=== PATIENT | male | born 1955 | race Caucasian/White ===

== ENCOUNTER → 2016-09-09 | Outpatient (REF) | payer MEDICARE, MEDICAID ==
[~2016-09-09] MED LIST: ASPI1TAB PO; ATOR1TAB21 PO; BACL10TA2 PO; CALC500T49 PO; CREO12CA PO; IRON65TA PO; LOMO2.5T PO; LORA10TA2 PO; MAGN400T PO; METO1TAB33 PO; OMEP20CA3 PO; PENT1TAB8 PO; ROPI0.5T PO; TEMA15CA2 PO; VENL150C43 PO; VITA500046 PO; VITA500T3 PO; VITA500T88 PO; ZALE10CA PO; [UNRECOGNIZED DRUG - CODE] PO; [UNRECOGNIZED DRUG - CODE] SC
[2016-09-09 19:19] LABS: ALBUMIN 1.9 GM/DL (3.2-5.2); ALBUMIN/GLOBULIN RATIO 0.59 (1.00-1.93); ALKALINE PHOSPHATASE 197 U/L (45-117); ALT/SGPT 70 U/L (12-78); ANION GAP 9 MEQ/L (8-16); AST/SGOT 91 U/L (15-37); BILIRUBIN,TOTAL 1.9 MG/DL (0.2-1.0); BLOOD UREA NITROGEN 8 MG/DL (7-18); CALCIUM LEVEL 7.9 MG/DL (8.8-10.2); CARBON DIOXIDE LEVEL 25 MEQ/L (21-32); CHLORIDE LEVEL 106 MEQ/L (98-107); CREATININE FOR GFR 0.93 MG/DL (0.70-1.30); GLOMERULAR FILTRATION RATE > 60.0 (>49); GLUCOSE, FASTING 71 MG/DL (80-110); POTASSIUM SERUM 4.8 MEQ/L (3.5-5.1); SODIUM LEVEL 140 MEQ/L (136-145); TOTAL PROTEIN 5.1 GM/DL (6.4-8.2)
[2016-09-09 19:27] LABS: MEAN CORPUSCULAR HEMOGLOBIN 32.8 pg (27.0-33.0); MEAN CORPUSCULAR HGB CONC 32.2 g/dl (32.0-36.5); MEAN CORPUSCULAR VOLUME 101.9 fl (80.0-96.0); RED CELL DISTRIBUTION WIDTH 14.4 % (11.5-14.5); WHITE BLOOD COUNT 7.1 K/mm3 (4.0-10.0)
== END ==
LOC: M LAB REF 16:13
PROVIDERS: ATTEND Surgery
DX: L89.892 Pressure ulcer of other site, stage 2 (principal); Z79.899 Other long term (current) drug therapy
CPT/HCPCS: 36415; 80053; 83036; 85027; G0463

== ENCOUNTER → 2016-09-27 | Outpatient (CLI) | payer MEDICARE, MEDICAID ==
--- NOTE | 2016-09-27 10:17 | REP ---
Left lower extremity deep vein duplex ultrasound: The deep veins of the left lower extremity demonstrate normal compression, normal Doppler color flow and normal Doppler waveforms with respiration augmentation at multiple levels. Impression: There is no left lower extremity deep vein thrombus. Signed by Martinez Mayberry MD 09/27/2016 10:08 A
== END ==
LOC: M RAD 08:32
PROVIDERS: ATTEND Surgery
DX: L89.892 Pressure ulcer of other site, stage 2 (principal)

== ENCOUNTER 2016-11-11 10:35 | Emergency (ER) | payer MEDICARE, MEDICAID ==
[~2016-11-11] VITALS: Ht 167.6 cm; Wt 82.7 kg
[2016-11-11] MEDS ORDERED: NS 1,000 ML IV ONE (11:30)
[2016-11-11] MEDS ORDERED: ASPI1TAB PO (11:35)
[2016-11-11] MEDS ORDERED: CALC500T49 PO (11:35)
[2016-11-11] MEDS ORDERED: BACL10TA2 PO ×2 (11:35)
[2016-11-11] MEDS ORDERED: VITA500T3 PO (11:38)
[2016-11-11] MEDS ORDERED: VENL150C43 PO (11:38)
[2016-11-11] MEDS ORDERED: CREO12CA PO (11:38)
[2016-11-11] MEDS ORDERED: LOMO2.5T PO (11:38)
[2016-11-11] MEDS ORDERED: METO1TAB33 PO (11:38)
[2016-11-11] MEDS ORDERED: IRON65TA PO (11:38)
[2016-11-11] MEDS ORDERED: LORA10TA2 PO (11:38)
[2016-11-11] MEDS ORDERED: VITA500T88 PO (11:39)
[2016-11-11] MEDS ORDERED: [UNRECOGNIZED DRUG - CODE] PO (11:39)
[2016-11-11] MEDS ORDERED: [UNRECOGNIZED DRUG - CODE] SC (11:45)
[2016-11-11] MEDS ORDERED: OMEP20CA3 PO (11:45)
[2016-11-11] MEDS ORDERED: MAGN400T PO (11:45)
[2016-11-11] MEDS ORDERED: ZALE10CA PO (11:45)
[2016-11-11] MEDS ORDERED: VITA500046 PO (11:45)
[2016-11-11] MEDS ORDERED: TEMA15CA2 PO (11:45)
[2016-11-11] MEDS ORDERED: ATOR1TAB21 PO (11:45)
[2016-11-11] MEDS ORDERED: PENT1TAB8 PO (11:45)
[2016-11-11] MEDS ORDERED: ROPI0.5T PO (11:45)
[2016-11-11 12:42] LABS: INR 1.63
[2016-11-11 12:59] LABS: ALBUMIN 1.6 GM/DL (3.2-5.2); ALKALINE PHOSPHATASE 116 U/L (45-117); ALT/SGPT 39 U/L (12-78); ANION GAP 8 MEQ/L (8-16); AST/SGOT 50 U/L (15-37); BILIRUBIN,DIRECT 0.9 MG/DL (0.0-0.2); BILIRUBIN,TOTAL 1.2 MG/DL (0.2-1.0); BLOOD UREA NITROGEN 20 MG/DL (7-18); CALCIUM LEVEL 7.7 MG/DL (8.8-10.2); CARBON DIOXIDE LEVEL 27 MEQ/L (21-32); CHLORIDE LEVEL 104 MEQ/L (98-107); CREATININE FOR GFR 1.29 MG/DL (0.70-1.30); GLOMERULAR FILTRATION RATE > 60.0 (>49); GLUCOSE, FASTING 56 MG/DL (80-110); POTASSIUM SERUM 4.3 MEQ/L (3.5-5.1); SODIUM LEVEL 139 MEQ/L (136-145); TOTAL PROTEIN 4.8 GM/DL (6.4-8.2)
[2016-11-11] MEDS ORDERED: ISOVUE-370 76% 100ML VIAL (Q9967) As Ordered ONE (13:10)
[2016-11-11 13:25] LABS: ADD MANUAL DIFFER YES; MEAN CORPUSCULAR HEMOGLOBIN 34.1 pg (27.0-33.0); MEAN CORPUSCULAR HGB CONC 33.8 g/dl (32.0-36.5); MEAN CORPUSCULAR VOLUME 100.9 fl (80.0-96.0); PLATELET COUNT, AUTOMATED 230 k/mm3 (150-450); RED CELL DISTRIBUTION WIDTH 13.3 % (11.5-14.5)
--- NOTE | 2016-11-11 13:59 | REP ---
CT BRAIN WITHOUT CONTRAST: CT brain is performed without IV contrast. Ventricles are normal in size and position. There is no midline shift. No abnormal densities are seen. There is no acute hemorrhage. There is no extra-axial fluid collection. Bone window examination is unremarkable. IMPRESSION: Negative noncontrast CT brain. Signed by Martinez Allen MD 11/11/2016 05:41 P
[2016-11-11 14:01] LABS: BANDS 9 % (< 11)
[2016-11-11 14:02] LABS: ANISOCYTOSIS 1+
--- NOTE | 2016-11-11 14:13 | REP ---
PORTABLE CHEST: AP portable view of the chest is performed. Cardiac silhouette is mildly prominent, but is probably magnified. There is no acute infiltrate. There is mild bibasilar and fibroatelectatic change. There is a dual lead pacemaker. Mediastinal silhouette is unremarkable. IMPRESSION: No acute infiltrate. Signed by Martinez Allen MD 11/11/2016 05:42 P
--- NOTE | 2016-11-11 14:47 | REP ---
CT of the abdomen and pelvis with IV contrast, without bowel contrast: Comparison is 05/28/2011. There are small bilateral pleural effusions. The hepatic parenchyma is unremarkable. There are multiple gallbladder cholesterol calculi. There is bariatric surgery. There is fatty atrophy of the pancreas. The spleen is unremarkable. There is wall thickening of the stomach and small bowel loops compatible with gastroenteritis. There is wall thickening of the colon compatible with colitis. Previously there was a large midline ventral hernia containing multiple bowel loops. This is significantly decreased in size on the study today there are surgical clips in the area of the hernia. There is no bowel distension or obstruction. Pelvis: There is wall thickening of the colonic bowel loops compatible with colitis. There is no ascites or adenopathy. The bladder is unremarkable. Impression: Wall thickening of the stomach, small bowel and colon compatible with [id number]. . There is no ascites or adenopathy. No bowel obstruction. Small ventral midline hernia, significantly decreased from the prior study. Cholesterol calculi in the gallbladder. Fatty atrophy of the pancreas. Signed by Martinez Mayberry MD 11/11/2016 02:39 P
[2016-11-11] MEDS ORDERED: NS 1,000 ML IV SCH (15:15)
[2016-11-11] MEDS ORDERED: MULTIVITAMIN -ADULT INJECTION 10 ML, THIAMINE INJection 100 MG, FOLIC ACID 1 MG in NS 1... IV ONE (16:30)
[2016-11-11] MEDS ORDERED: ACETAMINOPHEN 325 MG TAB PO ONE (17:45)
[2016-11-11 18:30] VITALS: BP 86/53
--- NOTE | 2016-11-12 11:39 | ECGEPIP ---
Stationary ECG Study [facility] - ED Test Date: 2016-11-11 Pat Name: JUANITA VILLEGAS Department: Room: - Gender: M [employer]: ct : 1955 Requested By: ANASTASIYA Redmond Order Number: [id number] Reading MD: Maureen Reed Measurements Intervals [place] Rate: 89 P: 35 AL: 158 QRS: -35 QRSD: 124 T: -9 QT: 380 QTc: 463 Interpretive Statements SINUS RHYTHM MARKED LEFT AXIS DEVIATION RIGHT BUNDLE BRANCH BLOCK PRWP NSTTW ABNORMALITY NO PRIOR FOR COMPARISON Electronically Signed On 11-12-2016 11:39:38 EDT by Maureen Reed
== END 2016-11-11 18:36 | disposition short-term general hospital (02) ==
LOC: EDBD 10:35 → M ED 10:35
DX: I95.9 Hypotension, unspecified (principal); E46 Unspecified protein-calorie malnutrition; E86.0 Dehydration; R94.31 Abnormal electrocardiogram [ECG] [EKG]; I48.91 Unspecified atrial fibrillation; Z98.84 Bariatric surgery status; Z87.891 Personal history of nicotine dependence; Z79.82 Long term (current) use of aspirin; Z79.899 Other long term (current) drug therapy
CPT/HCPCS: 36415; 70450; 71010; 74177; 80048; 80076; 82550; 82553; 83605; 83690; 83880; 84443; 84484; 85025; 85610; 85730; 86850; 86900; 86901; 93005; 93041; 94760; 96361; 96374; 99285; G0463; J3411; Q9967